=== PATIENT | male | born 1960 | race Hispanic/Latino ===

== ENCOUNTER 2018-12-09 11:08 | Emergency (ER) | payer BC ==
--- NOTE | 2018-12-09 13:54 | ED PDOC ---
Upper Extremity Pain/Injury Time Seen by Provider: 12/09/18 12:01 Chief Complaint (Nursing): Finger,Hand,&Wrist Chief Complaint (Provider): Finger,Hand,&Wrist History Per: Patient History/Exam Limitations: no limitations Onset/Duration Of Symptoms: Days (x3) Current Symptoms Are (Timing): Still Present Additional Complaint(s): Patient is a 58 y/o male with no significant PMHx who presents to the ED for evaluation after a mechanical trip and fall three nights ago. Patient fell on his face and required sutures, however, head/face workup were negative at the time. As of last night patient began experiencing wrist and hand soreness. Patient states the pain has been constant since. Patient denies any further musculoskeletal pain and any recent trauma. PCP: None Provided Past Medical History Reviewed: Historical Data, Nursing Documentation, Vital Signs Vital Signs: Last Vital Signs Temp 97.6 F 12/09/18 11:14 Pulse 82 12/09/18 11:14 Resp 18 12/09/18 11:14 BP 191/94 H 12/09/18 11:14 Pulse Ox 96 12/09/18 11:14 - Medical History PMH: No Chronic Diseases - Surgical History Surgical History: No Surg Hx - Family History Family History: States: No Known Family Hx - Allergies Allergies/Adverse Reactions: Allergies Allergy/AdvReac Type Severity Reaction Status Date / Time No Known Allergies Allergy Verified 12/09/18 11:14 Review of Systems ROS Statement: Except As Marked, All Systems Reviewed And Found Negative Musculoskeletal: Positive for: Hand Pain (and wrist pain). Negative for: Neck Pain, Shoulder Pain, Arm Pain, Back Pain, Leg Pain, Foot Pain, Other Physical Exam - Reviewed Nursing Documentation Reviewed: Yes Vital Signs Reviewed: Yes - Physical Exam Appears: Positive for: Non-toxic, No Acute Distress Head Exam: Positive for: ATRAUMATIC, NORMAL INSPECTION, NORMOCEPHALIC Skin: Positive for: Normal Color, Warm, Dry Eye Exam: Positive for: EOMI, Normal appearance, PERRL Neck: Positive for: Normal, Painless ROM, Supple Cardiovascular/Chest: Positive for: Regular Rate, Rhythm. Negative for: Murmur Respiratory: Positive for: Normal Breath Sounds. Negative for: Respiratory Distress Back: Positive for: Normal Inspection. Negative for: L CVA Tenderness, R CVA Tenderness, Vertebral Tenderness Extremity: Positive for: Normal ROM (and strength), Other. Negative for: Tenderness, Pedal Edema, Deformity, Swelling (or ecchymosis) Neurological/Psych: Positive for: Alert, Oriented (x3) - ECG O2 Sat by Pulse Oximetry: 96 (RA) Pulse Ox Interpretation: Normal Medical Decision Making Medical Decision Making: Time: 1207 Impression: Musculoskeletal pain to hands bilaterally Plan: Hand 3 Views BI [Rad] Wrist 3 Views BI [Rad] Motrin 800 mg PO Reassess Time: 1447 Hand Xray FINDINGS: BONES: Right Hand: Bone alignment and mineralization are normal. There is no acute displaced fracture or bone destruction. Left Hand: Bone alignment and mineralization are normal. There is no acute displaced fracture or bone destruction. The left lunate is fragmented and has increased sclerosis. JOINTS: Right Hand: There is mild degenerative osteoarthrosis in the scaphotrapezium and radiocarpal joints. Left Hand: There is degenerative osteoarthrosis in the scapholunate joint. SOFT TISSUES: Right Hand: Normal. Left Hand: Normal. OTHER FINDINGS: None. IMPRESSION: 1. No acute displaced fracture or dislocation. 2. 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 Time: 1449 Wrist Xray FINDINGS: BONES: Right Carpal Bones: Bone alignment and mineralization are normal. There is no acute displaced fracture or bone destruction. Left Carpal Bones: Bone alignment and mineralization are normal. There is no acute displaced fracture or bone destruction. The lunate is fragmented and has increased sclerosis. Right Distal Radius and Ulna: Mild degenerative osteoarthrosis. Left Distal Radius and Ulna: Mild degenerative osteoarthrosis. JOINT SPACES: Right Wrist: Normal. No degenerative changes. Left Wrist: There is moderate degenerative osteoarthrosis in the scapholunate joint. SOFT TISSUES: Right Wrist: Normal. Left Wrist: Normal. OTHER FINDINGS: None. IMPRESSION: No acute displaced fracture or dislocation. 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 Time: 1500 On reevaluation, patient continues to have full ROM. Distal pulses 2+. No snuff box tenderness. Scribe Attestation: Documented by Delio Dietz, acting as a scribe for Halle Alvarez MD. Provider Scribe Attestation: All medical record entries made by the Scribe were at my direction and personally dictated by me. I have reviewed the chart and agree that the record accurately reflects my personal performance of the history, physical exam, medical decision making, and the department course for this patient. I have also personally directed, reviewed, and agree with the discharge instructions and disposition. Disposition - Clinical Impression Clinical Impression: Osteoarthritis - Disposition Referrals: Non [facility] Provider, [Primary Care Provider] - Cliff Hansen MD [Medical Doctor] - Condition: IMPROVED Additional Instructions: Take Motrin as needed for pain. Follow up with orthopedic surgeon in one to two weeks. Instructions: Osteoarthritis (DC) Forms: [employer] (Polish) Print Language: GEORGIAN
--- NOTE | 2018-12-09 14:51 | RAD ---
PROCEDURE: Bilateral hand radiographs. HISTORY: bl hand pain, fosh COMPARISON: None. FINDINGS: BONES: Right Hand: Bone alignment and mineralization are normal. There is no acute displaced fracture or bone destruction. Left Hand: Bone alignment and mineralization are normal. There is no acute displaced fracture or bone destruction. The left lunate is fragmented and has increased sclerosis. JOINTS: Right Hand: There is mild degenerative osteoarthrosis in the scaphotrapezium and radiocarpal joints. Left Hand: There is degenerative osteoarthrosis in the scapholunate joint. SOFT TISSUES: Right Hand: Normal. Left Hand: Normal. OTHER FINDINGS: None. IMPRESSION: 1. No acute displaced fracture or dislocation. 2. 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
--- NOTE | 2018-12-09 14:52 | RAD ---
Date of service: 12/09/2018 PROCEDURE: Bilateral Wrists Radiographs. HISTORY: mechanical fall onto outstretched arms COMPARISON: None. FINDINGS: BONES: Right Carpal Bones: Bone alignment and mineralization are normal. There is no acute displaced fracture or bone destruction. Left Carpal Bones: Bone alignment and mineralization are normal. There is no acute displaced fracture or bone destruction. The lunate is fragmented and has increased sclerosis. Right Distal Radius and Ulna: Mild degenerative osteoarthrosis. Left Distal Radius and Ulna: Mild degenerative osteoarthrosis. JOINT SPACES: Right Wrist: Normal. No degenerative changes. Left Wrist: There is moderate degenerative osteoarthrosis in the scapholunate joint. SOFT TISSUES: Right Wrist: Normal. Left Wrist: Normal. OTHER FINDINGS: None. IMPRESSION: No acute displaced fracture or dislocation. 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
[2018-12-09 15:09] VITALS: BP 148/90; PULSE 66; RESP 19
[2018-12-09 15:10] VITALS: TEMP 97.7; O2SAT 98
== END 2018-12-09 15:11 | disposition home or self-care (01) ==
LOC: SUPCPDRO 11:08 → H.ER 11:08
DX: M19.031 Primary osteoarthritis, right wrist (principal)